=== PATIENT | male | born 1980 | race Caucasian/White ===

== ENCOUNTER 2016-08-11 16:48 | Emergency (ER) | payer SELFPAY ==
--- NOTE | 2016-08-11 17:21 | ER Document Report ---
ED Medical Screen (RME) - General Chief Complaint: Shoulder Pain Stated Complaint: SHOULDER PAIN Mode of Arrival: Ambulatory Information source: Patient Notes: 35 y/o M presents to ED c/o right shoulder/upper back pain. Pt reports first noted pain after twisting motion approximately 4 days ago. Denies fall or direct trauma. I have greeted and performed a rapid initial assessment of this patient. A comprehensive ED assessment and evaluation of the patient, analysis of test results and completion of the medical decision making process will be conducted by additional ED providers. TRAVEL OUTSIDE OF THE [place] IN LAST 30 DAYS: No - Related Data Allergies/Adverse Reactions: venom-honey bee [bee venom (honey bee)] Allergy (Verified 08/11/16 17:15) Past Medical History - Social History Chew tobacco use (# tins/day): No Frequency of alcohol use: None Drug Abuse: None Pulmonary Medical History: Reports: Hx Asthma, Hx Bronchitis Renal/ Medical History: Denies: Hx Peritoneal Dialysis - Immunizations Immunizations up to date: Yes Hx Diphtheria, Pertussis, Tetanus Vaccination: Yes Physical Exam - Vital signs Vitals: Temp Pulse Resp BP Pulse Ox 97.8 F 70 18 123/81 100 08/11/16 17:17 08/11/16 17:17 08/11/16 17:17 08/11/16 17:17 08/11/16 17:17 - General General appearance: Appears well, Alert In distress: None - Respiratory Respiratory status: No respiratory distress - Cardiovascular Pulses: Normal: Radial Normal capillary refill: Yes Course - Vital Signs Vital signs: Temp Pulse Resp BP Pulse Ox 97.8 F 70 18 123/81 100 08/11/16 17:17 08/11/16 17:17 08/11/16 17:17 08/11/16 17:17 08/11/16 17:17
[2016-08-11] MEDS ORDERED: HYDROCODONE/ACETAMINOPHEN 5-325 MG 6 TAB/DSPK PO PRN (20:46)
[2016-08-11] MEDS ORDERED: LIDOCAINE 5% (700 MG) TRANSDERMAL ADH..PATCH TP ONE (20:46)
[2016-08-11] MEDS ORDERED: NAPROXEN 250 MG TABLET PO ONE (20:46)
--- NOTE | 2016-08-11 20:47 | ER Document Report ---
ED General - General Chief Complaint: Shoulder Pain Stated Complaint: SHOULDER PAIN Mode of Arrival: Ambulatory Notes: Patient is a 35-year-old male who presents after he accidentally "popped" his shoulder while "wrestling" with his in bed 2 days ago. States that he reached over and felt his shoulder click and since that time has had a severe, constant, sharp pain in the area. He has been trying ibuprofen at home with minimal relief of his pain. Nothing worsens the pain other than trying to move the shoulder. Denies any history of similar symptoms in the past. He denies any associated weakness, numbness, headache or neck pain. No additional injury or complaint. He has not seen his primary care physician regarding today's concern. TRAVEL OUTSIDE OF THE [place] IN LAST 30 DAYS: No - Related Data Allergies/Adverse Reactions: venom-honey bee [bee venom (honey bee)] Allergy (Verified 08/11/16 17:15) Past Medical History - General Information source: Patient - Social History Smoking Status: Current Every Day Smoker Chew tobacco use (# tins/day): No Frequency of alcohol use: None Drug Abuse: None Lives with: Spouse/Significant other Family History: Reviewed & Not Pertinent, Other - Biological father from [place] and grandfather has had [place] as well Patient has suicidal ideation: No Patient has homicidal ideation: No Pulmonary Medical History: Reports: Hx Asthma, Hx Bronchitis Renal/ Medical History: Denies: Hx Peritoneal Dialysis Past Surgical History: Reports: Hx Appendectomy - Immunizations Immunizations up to date: Yes Hx Diphtheria, Pertussis, Tetanus Vaccination: Yes Review of Systems - Review of Systems Notes: Constitutional: Negative for fever. Cardiovascular: Negative for chest pain. Respiratory: Negative for shortness of breath. Gastrointestinal: Negative for vomiting Musculoskeletal: Positive for right shoulder pain Skin: Negative for rash. Neurological: Negative for weakness or numbness. 10 point ROS negative except as marked above and in HPI. Physical Exam - Vital signs Vitals: Temp Pulse Resp BP Pulse Ox 97.8 F 70 18 123/81 100 08/11/16 17:17 08/11/16 17:17 08/11/16 17:17 08/11/16 17:17 08/11/16 17:17 Interpretation: Normal Notes: PHYSICAL EXAMINATION: GENERAL: Well-appearing, well-nourished and in no acute distress. HEAD: Atraumatic, normocephalic. EYES: sclera anicteric, conjunctiva are normal. ENT: Moist mucous membranes. NECK: Normal range of motion LUNGS: Normal work of breathing HEART: 2+ radial pulses bilaterally EXTREMITIES: Patient has severe pain with abduction of the right shoulder past 90. No focal deformity. AIN, PIN, IO intact. RMU sensation intact. NEUROLOGICAL: No focal neurological deficits. Moves all extremities spontaneously and on command. PSYCH: Normal mood, normal affect. SKIN: Warm, Dry, normal turgor, no rashes or lesions noted. Course - Re-evaluation Re-evalutation: 08/11/16 20:47 No evidence of a septic joint, gout flare, dislocation, or fracture on exam and imaging. Vitals wnl. At this time, I do not see an indication for labs or further imaging. Will discharge with conservative measures, return precautions, and follow-up recommendations. - Vital Signs Vital signs: Temp Pulse Resp BP Pulse Ox 97.7 F 83 18 135/82 H 99 08/11/16 21:34 08/11/16 21:34 08/11/16 21:34 08/11/16 21:34 08/11/16 21:34 Discharge - Discharge Clinical Impression: Right shoulder pain Qualifiers: Chronicity: acute Qualified Code(s): M25.511 - Pain in right shoulder Condition: Good Disposition: HOME, SELF-CARE Additional Instructions: Your x-ray does not show any acute fracture today. You likely have a ligamentous strain. You should continue to take anti-inflammatories such as ibuprofen 600 mg every 6 hours. Continue to apply ice to the area is much your able. Please follow-up with your primary care physician if you do not have improving your symptoms in the next 1-2 weeks. Please return immediately if you develop weakness, numbness, spreading redness from the area, or any other symptoms that are concerning to you. Forms: Return to Work Referrals: RHONA ALEJANDRO MD [ACTIVE STAFF] - Follow up as needed
[2016-08-11 21:37] VITALS: BP 135/82
== END 2016-08-11 21:37 | disposition home or self-care (01) ==
LOC: ER 16:48
DX: M25.511 Pain in right shoulder (principal); X50.0XXA Overexertion from strenuous movement or load, initial encounter; Y93.72 Activity, wrestling; J45.909 Unspecified asthma, uncomplicated; F17.200 Nicotine dependence, unspecified, uncomplicated; Z91.030 Bee allergy status
CPT/HCPCS: 99283

== ENCOUNTER 2016-08-23 14:24 | Emergency (ER) | payer SELFPAY ==
--- NOTE | 2016-08-23 14:59 | ER Document Report ---
ED Medical Screen (RME) - General Stated Complaint: POSSIBLE ALLERGIC REACTION Time seen by provider: 14:56 Mode of Arrival: Wheelchair Information source: Patient Notes: 35-year-old male presents to ED for pain (burning sensation" in his right foot. He states he was stung by a wasp yesterday. 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 States she's taken some ibuprofen has not taken any Benadryl denies any trouble swallowing or breathing. I have greeted and performed a rapid initial assessment of this patient. A comprehensive ED assessment and evaluation of the patient, analysis of test results and completion of medical decision making process will be conducted by an additional ED providers. TRAVEL OUTSIDE OF THE [place] IN LAST 30 DAYS: No - Related Data Allergies/Adverse Reactions: venom-honey bee [bee venom (honey bee)] Allergy (Verified 08/23/16 14:53) Past Medical History Pulmonary Medical History: Reports: Hx Asthma, Hx Bronchitis Renal/ Medical History: Denies: Hx Peritoneal Dialysis Past Surgical History: Reports: Hx Appendectomy - Immunizations Immunizations up to date: Yes Hx Diphtheria, Pertussis, Tetanus Vaccination: Yes Physical Exam - Vital signs Vitals: Temp Pulse Resp BP Pulse Ox 97.8 F 72 16 120/80 99 08/23/16 14:40 08/23/16 14:40 08/23/16 14:40 08/23/16 14:40 08/23/16 14:40 Course - Vital Signs Vital signs: Temp Pulse Resp BP Pulse Ox 97.8 F 72 16 120/80 99 08/23/16 14:40 08/23/16 14:40 08/23/16 14:40 08/23/16 14:40 08/23/16 14:40
[2016-08-23] MEDS ORDERED: DIPHENHYDRAMINE HCL 50 MG CAPSULE PO ONE (15:01)
[2016-08-23] MEDS ORDERED: IBUPROFEN 800 MG TABLET PO ONE (15:01)
--- NOTE | 2016-08-23 17:09 | ER Document Report ---
ED Skin Rash/Insect Bite/Abscs - General Chief Complaint: Foot Pain Stated Complaint: POSSIBLE ALLERGIC REACTION Mode of Arrival: Wheelchair Notes: The patient is a 35-year-old male who presents with a itchy rash on the bottom of his right foot after he stepped on a bee one day ago. He noticed some redness. Has not taken anything to help. Denies difficulty breathing, wheezing , throat swelling, nausea, vomiting or any other rashes. TRAVEL OUTSIDE OF THE [place] IN LAST 30 DAYS: No - Related Data Allergies/Adverse Reactions: venom-honey bee [bee venom (honey bee)] Allergy (Verified 08/23/16 14:53) Past Medical History - General Information source: Patient - Social History Smoking Status: Current Every Day Smoker Chew tobacco use (# tins/day): Yes Family History: Reviewed & Not Pertinent, Other - Biological father from [place] and grandfather has had [place] as well Patient has suicidal ideation: No Patient has homicidal ideation: No Pulmonary Medical History: Reports: Hx Asthma, Hx Bronchitis Renal/ Medical History: Denies: Hx Peritoneal Dialysis Past Surgical History: Reports: Hx Appendectomy - Immunizations Immunizations up to date: Yes Hx Diphtheria, Pertussis, Tetanus Vaccination: Yes Review of Systems - Review of Systems Notes: REVIEW OF SYSTEMS: CONSTITUTIONAL: -fevers, -chills EENT: -eye pain, -difficulty swallowing, -nasal congestion CARDIOVASCULAR:-chest pain, -syncope. RESPIRATORY: -cough, -SOB GASTROINTESTINAL: -abdominal pain, -nausea, -vomiting, -diarrhea GENITOURINARY: -dysuria, -hematuria MUSCULOSKELETAL: -back pain, -neck pain SKIN: -right foot rash HEMATOLOGIC: -easy bruising or bleeding. LYMPHATIC: -swollen, enlarged glands. NEUROLOGICAL: -altered mental status or loss of consciousness, -headache, - neurologic symptoms PSYCHIATRIC: -anxiety, -depression. ALL OTHER SYSTEMS REVIEWED AND NEGATIVE. Physical Exam - Vital signs Vitals: Temp Pulse Resp BP Pulse Ox 97.8 F 72 16 120/80 99 08/23/16 14:40 08/23/16 14:40 08/23/16 14:40 08/23/16 14:40 08/23/16 14:40 - Notes Notes: PHYSICAL EXAMINATION: GENERAL: Well-appearing, well-nourished and in no acute distress. HEAD: Atraumatic, normocephalic. EYES: Pupils equal round and reactive to light, extraocular movements intact, sclera anicteric, conjunctiva are normal. ENT: nares patent, oropharynx clear without exudates. Moist mucous membranes. NECK: Normal range of motion, supple without lymphadenopathy LUNGS: Breath sounds clear to auscultation bilaterally and equal. No wheezes rales or rhonchi. HEART: Regular rate and rhythm without murmurs ABDOMEN: Soft, nontender, normoactive bowel sounds. No guarding, no rebound. No masses appreciated. EXTREMITIES: Small erythematous area on the surface of the right foot. Normal range of motion, no pitting or edema. No cyanosis. NEUROLOGICAL: Cranial nerves grossly intact. Normal speech, normal gait. Normal sensory, motor, and reflex exams. PSYCH: Normal mood, normal affect. Course - Re-evaluation Re-evalutation: No signs of anaphylaxis. Do not suspect allergic reaction. Small erythematous area most likely from local skin irritation. Stinger removed. - Vital Signs Vital signs: Temp Pulse Resp BP Pulse Ox 97.6 F 54 L 16 124/82 100 08/23/16 18:06 08/23/16 18:06 08/23/16 14:40 08/23/16 18:06 08/23/16 18:06 Procedures - Incision and Drainage Right Foot Type: Simple Incision Method: Incision made with needle Notes: Removal of stinger from bottom of right foot using forceps. Discharge - Discharge Clinical Impression: Bee sting Qualifiers: Encounter type: initial encounter Injury intent: undetermined intent Qualified Code(s): T63.444A - Toxic effect of venom of bees, undetermined, initial encounter Condition: Good Disposition: HOME, SELF-CARE Additional Instructions: ACUTE ALLERGIC REACTION: Your symptoms are due to an allergic reaction. Allergy can cause hives, swelling of the hands, feet, and face, hoarseness, and difficulty swallowing or breathing. It may be due to exposure to medication, animal dander, foods, infection, or insect bites. Medication is a common cause, even when prior use of this same medication caused no problems. Acute treatment may include adrenalin and antihistamines. Usually, the specific allergic agent can't be identified unless repeated episodes occur. Home treatment includes the following: (1) Stop any suspicious medications. This will be discussed with you. (2) Oral antihistamines for the next four to five days. Example, diphenhydramine (Benadryl) every four hours. (3) You may also use cimetidine (Tagamet), ranitidine (Zantac), or famotidine ( Pepcid) every four hours if diphenhydramine is not controlling itching and hives. (4) Avoid aspirin until the hives completely disappear. (5) Avoid hot baths or showers until the hives are completely gone. Call the doctor if faintness, difficulty swallowing, tightness in the chest , or wheezing occurs. ANTIHISTAMINES: An antihistamine has been given and/or prescribed to control your symptoms. Antihistamines are used for many reasons, including itching, watering eyes, runny nose, allergic swelling, hives, and insect stings. Antihistamines may cause drowsiness, especially with the first dose. Do not operate machinery or drive while under the effects of the medication. Other common side effects include dry mouth and eyes. In older persons, antihistamines can occasionally cause urinary retention, constipation, and trouble focusing the eyes. Do not combine the medication with alcohol, or with any other medication without talking to your doctor. USE OF DIPHENHYDRAMINE: The use of diphenhydramine (Benadryl) has been recommended to control allergic symptoms. The 25 mg strength is available over- the-counter, as well as the elixir. This antihistamine is used for many symptoms. It's useful for itching, watering eyes and nose, allergic swelling, hives, and insect stings. The medication can be repeated four times daily. Age Elixir (12.5 mg/tsp) 25 mg pill 2-3 yr 1/2 tsp 4-8 yr 1 tsp 9-14 yr 2 tsp one tab adult 1-2 tabs Antihistamines may cause drowsiness, especially with the first dose. Do not operate machinery or drive while under the effects of the medication. Do not combine the medication with alcohol, or with any other medication without talking to your doctor. FOLLOW-UP CARE: If you have been referred to a physician for follow-up care, call the physician s office for an appointment as you were instructed or within the next two days. If you experience worsening or a significant change in your symptoms, notify the physician immediately or return to the Emergency Department at any time for re-evaluation. Forms: Return to Work
[2016-08-23 18:15] VITALS: BP 124/82
== END 2016-08-23 18:06 | disposition home or self-care (01) ==
LOC: ER 14:24
DX: T63.441A Toxic effect of venom of bees, accidental (unintentional), initial encounter (principal); L25.8 Unspecified contact dermatitis due to other agents; S90.851A Superficial foreign body, right foot, initial encounter; F17.200 Nicotine dependence, unspecified, uncomplicated
CPT/HCPCS: 99283

== ENCOUNTER 2016-10-05 08:23 | Emergency (ER) | payer SELFPAY ==
--- NOTE | 2016-10-05 09:20 | ER Document Report ---
ED General - General Chief Complaint: Nose Pain Stated Complaint: NOSE INJURY Mode of Arrival: Ambulatory Information source: Patient Notes: 36-year-old male presents with complaints of nasal injury while tickling his . Patient notes he was head butted admits that it hurts to touch is able to breathe through his nostrils with no difficulty TRAVEL OUTSIDE OF THE [place] IN LAST 30 DAYS: No - HPI Onset: Yesterday Onset/Duration: Sudden Quality of pain: Achy Severity: Mild Pain Level: 1 Associated symptoms: Other Exacerbated by: Movement Relieved by: Denies Similar symptoms previously: No Recently seen / treated by doctor: No - Related Data Allergies/Adverse Reactions: venom-honey bee [bee venom (honey bee)] Allergy (Verified 10/05/16 08:25) Past Medical History - Social History Smoking Status: Current Every Day Smoker Cigarette use (# per day): Yes Chew tobacco use (# tins/day): No Smoking Education Provided: No Frequency of alcohol use: Rare Drug Abuse: None Family History: Reviewed & Not Pertinent, Other - Biological father from [place] and grandfather has had [place] as well Patient has suicidal ideation: No Patient has homicidal ideation: No Pulmonary Medical History: Reports: Hx Asthma, Hx Bronchitis Renal/ Medical History: Denies: Hx Peritoneal Dialysis Past Surgical History: Reports: Hx Appendectomy - Immunizations Immunizations up to date: Yes Hx Diphtheria, Pertussis, Tetanus Vaccination: Yes Review of Systems - Review of Systems Notes: REVIEW OF SYSTEMS: CONSTITUTIONAL : Denies fever, chills, or sweats. Denies recent illness. EENT: Denies eye, ear, throat, or mouth pain or symptoms. Denies nasal or sinus congestion or discharge. Denies throat, tongue, or mouth swelling or difficulty swallowing. Admits nasal pain CARDIOVASCULAR: Denies chest pain. Denies palpitations or racing or irregular heart beat. Denies ankle edema. RESPIRATORY: Denies cough, cold, or chest congestion. Denies shortness of breath, difficulty breathing, or wheezing. GASTROINTESTINAL: Denies abdominal pain or distention. Denies nausea, vomiting , or diarrhea. Denies blood in vomitus, stools, or per rectum. Denies black, tarry stools. Denies constipation. GENITOURINARY: Denies difficulty urinating, painful urination, burning, frequency, blood in urine, or discharge. MUSCULOSKELETAL: Denies back or neck pain or stiffness. Denies joint pain or swelling. SKIN: Denies rash, lesions or sores. HEMATOLOGIC : Denies easy bruising or bleeding. LYMPHATIC: Denies swollen, enlarged glands. NEUROLOGICAL: Denies confusion or altered mental status. Denies passing out or loss of consciousness. Denies dizziness or lightheadedness. Denies headache. Denies weakness or paralysis or loss of use of either side. Denies problems with gait or speech. Denies sensory loss, numbness, or tingling. Denies seizures. PSYCHIATRIC: Denies anxiety or stress. Denies depression, suicidal ideation, or homicidal ideation. ALL OTHER SYSTEMS REVIEWED AND NEGATIVE. Dictation was performed using [email or web address] voice recognition software PHYSICAL EXAMINATION: GENERAL: Well-appearing, well-nourished and in no acute distress. HEAD: Atraumatic, normocephalic. EYES: Pupils equal round extraocular movements intact, conjunctiva are normal. ENT: Nares patent tenderness palpation of the nasal bridge NECK: Normal range of motion LUNGS: No respiratory distress Musculoskeletal: Normal range of motion NEUROLOGICAL: Normal speech, normal gait. PSYCH: Normal mood, normal affect. SKIN: Warm, Dry, normal turgor, no rashes or lesions noted. Physical Exam - Vital signs Vitals: Temp Pulse Resp BP Pulse Ox 98.0 F 83 20 145/94 H 98 10/05/16 08:26 10/05/16 08:26 10/05/16 08:26 10/05/16 08:26 10/05/16 08:26 Course - Re-evaluation Re-evalutation: 10/05/16 09:20 X-ray pending otherwise patient stable - Vital Signs Vital signs: Temp Pulse Resp BP Pulse Ox 98.0 F 83 20 145/94 H 98 10/05/16 08:26 10/05/16 08:26 10/05/16 08:26 10/05/16 08:26 10/05/16 08:26 Discharge - Discharge Clinical Impression: Nasal injury Qualifiers: Encounter type: initial encounter Qualified Code(s): S09.92XA - Unspecified injury of nose, initial encounter Condition: Stable Disposition: HOME, SELF-CARE Instructions: Fracture of the Nose ([facility]) Additional Instructions: Follow up with your physician tomorrow for further care or return to the ED IMMEDIATELY if symptoms worsen or new concerns occur
[2016-10-05 10:33] VITALS: BP 142/90
== END 2016-10-05 10:34 | disposition home or self-care (01) ==
LOC: ER 08:23
DX: S09.92XA Unspecified injury of nose, initial encounter (principal); F17.210 Nicotine dependence, cigarettes, uncomplicated; X58.XXXA Exposure to other specified factors, initial encounter
CPT/HCPCS: 70160; 99283

== ENCOUNTER 2016-10-15 19:40 | Emergency (ER) | payer SELFPAY ==
--- NOTE | 2016-10-15 21:39 | ER Document Report ---
ED General - General Chief Complaint: Flu Symptoms Stated Complaint: VOMITING Mode of Arrival: Ambulatory Information source: Patient Notes: Patient is a 36 year old male who presents with 2 day history of body aches, subjective fever, dry non-productive cough, nausea and vomiting. Last episode of vomiting was yesterday. States today he started having diarrhea ( approximately 10 episodes) but denies blood in stool. He has been taking OTC robitussin/cough and cold medications. Denies any previous medical history or regular medications. Current smoker. Works in [employer] with approx 200 coworkers. Denies any sore throat, chest pain, SOB, abdominal pain or dysuria. TRAVEL OUTSIDE OF THE [place] IN LAST 30 DAYS: No - Related Data Allergies/Adverse Reactions: venom-honey bee [bee venom (honey bee)] Allergy (Verified 10/05/16 08:25) Past Medical History - Social History Smoking Status: Current Every Day Smoker Family History: Reviewed & Not Pertinent, Other - Biological father from [place] and grandfather has had [place] as well Patient has suicidal ideation: No Patient has homicidal ideation: No Pulmonary Medical History: Reports: Hx Asthma, Hx Bronchitis Renal/ Medical History: Denies: Hx Peritoneal Dialysis Past Surgical History: Reports: Hx Appendectomy - Immunizations Immunizations up to date: Yes Hx Diphtheria, Pertussis, Tetanus Vaccination: Yes Review of Systems - Review of Systems Constitutional: See HPI EENT: See HPI Cardiovascular: No symptoms reported Respiratory: See HPI Gastrointestinal: See HPI Genitourinary: No symptoms reported Male Genitourinary: No symptoms reported Musculoskeletal: No symptoms reported Skin: No symptoms reported Hematologic/Lymphatic: No symptoms reported Neurological/Psychological: No symptoms reported Physical Exam - Vital signs Vitals: Temp Pulse Resp BP Pulse Ox 98.2 F 59 L 20 133/82 H 99 10/15/16 19:49 10/15/16 19:49 10/15/16 19:49 10/15/16 19:49 10/15/16 19:49 Interpretation: Hypertensive - Notes Notes: PHYSICAL EXAM: CONSTITUTIONAL: Alert and oriented, ill-appearing and in no acute distress. Non- toxic in appearance. HENT: Normocephalic, atraumatic. Nares clear without erythema, septal hematoma or deviation, airway patent. Oropharynx clear without erythema, tonsilar exudate or malocclusion. Trachea midline. Uvula midline. Moist mucous membranes. EYES: Pupils equal round and reactive to light, EOM intact. Sclera anicteric, conjunctiva are normal. No entrapment. NECK: supple without lymphadenopathy. ROM intact. HEART: Regular rate and rhythm without murmurs. LUNGS: CTAB and equal. No wheezes, rales or rhonchi. GI: Normactive bowel sounds. Nontender, non-distended. No organomegaly. no CVAT. BACK: nontender, no paraspinous spasm, 5+/5 strengths, DTRs 2+, SLR -. EXTREMITIES: Normal range of motion, no pitting edema. No cyanosis. Cap Refill < 3 seconds. SKIN: Warm and dry. Normal turgor. No rashes or lesions noted. Course - Re-evaluation Re-evalutation: 10/15/16 21:35 Patient seen and examined, VSS, no respiratory distress. Lungs CTAB. Abdominal exam unremarkable. Influenza negative. Exam consistent with flu-like illness. At this time, low suspicion for meningitis, pneumonia, pneumothorax, appendicitis, cholecysitis, peritonitis, epididymitis or other intra-abdominal infections. Will treat with supportive care measures. At this time, will discharge with return precautions and follow-up recommendations. Verbal discharge instructions given at the bedside and opportunity for questions given. Medication warnings reviewed. Patient is in agreement with this plan and has verbalized understanding of return precautions and the need for primary care follow-up in the next 24-72 hours. - Vital Signs Vital signs: Temp Pulse Resp BP Pulse Ox 98.2 F 59 L 20 133/82 H 99 10/15/16 19:49 10/15/16 19:49 10/15/16 19:49 10/15/16 19:49 10/15/16 19:49 Discharge - Discharge Clinical Impression: Flu-like symptoms, Acute viral syndrome Condition: Stable Disposition: HOME, SELF-CARE Additional Instructions: VOMITING: Vomiting (or nausea without vomiting) can be caused by many other different problems. It can mean that something's wrong with the stomach, such as ulcers or inflammation or the intestinal tract, such as appendicitis. But it can also be a symptom of a problem that has nothing to do with the stomach or intestines. Vomiting is common with severe headaches, earaches, tonsillitis, and kidney infections, etc. We see it with pneumonia or heart attacks. Drugs can cause nausea and vomiting. Many abdominal problems cause vomiting; for example, gallstones, kidney stones, pancreatitis, and intestinal obstruction ( blocked bowels). In most cases, curing the vomiting depends on fixing the problem that caused it. For temporary relief, we may use an anti-nausea medicine. For home use, we can prescribe suppositories, chewable pills, pills that dissolve in the mouth, or liquid anti-nausea drugs. If the vomiting seems to be caused by a problem in the stomach, acid-suppressing drugs may be prescribed as well. It's important to avoid dehydration. Sip small amounts of clear liquids ( soft drinks, tea, broth, etc) . Try to take fluids frequently even if you are vomiting to prevent dehydration. Take increasing amounts of fluid and when liquids are being consumed successfully, advance to small amounts of bland food (toast, soups, mashed potatoes, etc.) until you are able to resume a regular diet. Avoid aspirin, tobacco, and alcohol. If the vomiting worsens, if the problem that's making you vomit worsens, or if there's evidence of bleeding in the stomach (such as black, tarry stool, or bloody or black vomit), you should return immediately. Also, return if abdominal pain worsens or becomes localized to one area or you develop high fever. Call your doctor if you aren't improved in 24 hours. DIARRHEA, NON-SPECIFIC: Diarrhea means frequent, watery stools. There are many causes. Any problem that keeps the intestinal tract from absorbing water from the stool can lead to diarrhea. A sudden new diarrhea problem is usually caused by a virus, food sensitivity, toxic bacteria, or drugs. In this case, we expect the problem to go away soon. Testing is done only if you seem seriously ill from the diarrhea. If you have chronic diarrhea, or diarrhea that keeps coming back, we need to find out why. Chronic diarrhea can be due to inflammation of the bowels such as Crohn's disease or ulcerative colitis, food sensitivity such as intolerance to lactose or wheat protein, irritable bowel syndrome, and other problems. If your diarrhea is a significant problem but it's not clear why you have it, we' ll refer you to a specialist for further testing. During an episode of diarrhea, drink small amounts (two to six ounces) of clear liquids (soft drinks, sport drinks, herb teas, broth, etc). Take fluids frequently to prevent dehydration. It's usually not a problem to take mild anti- diarrhea medication such as Kaopectate or Pepto-Bismol. As the diarrhea eases, advance to small amounts of bland food (mashed potato, toast) for 24 hours. Call the physician if blood appears in your vomit or stool, if vomiting lasts longer than 24 hours, if the abdominal pain worsens or becomes localized to one area, if you develop high fever, or if you become lightheaded and weak. VIRAL SYNDROME: The physician has diagnosed a viral infection. Viruses not only cause "colds," but can cause many different symptoms including generalized aching, fever, headache, cough, diarrhea, nausea, vomiting, and fatigue. The treatment, for the most part, is simply relief of symptoms. This means that antibiotics are usually not given. Rest, fluids, pain medications and, occasionally, medication for the specific symptoms that are most bothersome will be prescribed. Use good handwashing to avoid passing the virus to others. Shared toys should be cleaned with disinfectant. Clean the toilets, sinks, and counter surfaces in bathrooms. Launder clothing in hot water. Contact the physician if you develop any new or unusual symptoms such as severe headache, stiff neck, high fever, chest pain, productive cough, or shortness of breath. You should be rechecked if you don't see marked improvement within seven to 10 days. ANTINAUSEA MEDICATION: You have been given a medication to suppress nausea and vomiting. This type of medication can be given as a shot, pill, or suppository. It will usually last for many hours. Pills and shots usually last six to eight hours. For the typical illness, only one or two doses of the medication may be necessary. Mild lightheadedness may occur. This type of medicine can cause drowsiness. Do not drive or operate dangerous machinery while under its influence. Do not mix with alcohol. See your doctor at once if you have muscle spasms or tightness, or uncontrollable motions (particularly of the neck, mouth, or jaw). Persistent vomiting or severe lightheadedness should also be evaluated by the physician. PRESCRIBED ANTIDIARRHEAL MEDICATION: Your doctor has prescribed antidiarrhea medication for you. While the usual treatment for diarrhea is a clear liquid diet to rest the bowels, an antidiarrheal medicine may allow you to be more active and comfortable while you recover. This medication can make you drowsy. Do not drive or operate machinery while under its influence. Do not combine with alcohol. Prescription antidiarrhea medicine can cause dry mouth. Occasionally, it can make you unable to pass your urine. Do not exceed the prescribed dosage. Severe abdominal pains, lightheadedness, bloody stool, or fever indicate that your disease is worsening. If these occur, stop the medication and see your doctor at once. FOLLOW-UP CARE: If you have been referred to a physician for follow-up care, call the physician s office for an appointment as you were instructed or within the next two days. If you experience worsening or a significant change in your symptoms, notify the physician immediately or return to the Emergency Department at any time for re-evaluation. Prescriptions: Loperamide HCl [Imodium 2 mg Capsule] 2 mg PO Q6HP PRN #21 cap PRN Reason: Prednisone [Deltasone 20 mg Tablet] 3 tab PO DAILY 5 Days Promethazine HCl [Phenergan 25 mg Tablet] 1 - 2 tab PO Q6H PRN #15 tablet PRN Reason: Forms: Elevated Blood Pressure, Return to Work
[2016-10-15 21:56] VITALS: BP 135/85
== END 2016-10-15 21:55 | disposition home or self-care (01) ==
LOC: ER 19:40
DX: B34.9 Viral infection, unspecified (principal); R52 Pain, unspecified; R50.9 Fever, unspecified; R05 Cough; R11.2 Nausea with vomiting, unspecified; F17.200 Nicotine dependence, unspecified, uncomplicated
CPT/HCPCS: 87804; 99283

== ENCOUNTER 2016-10-18 12:38 | Emergency (ER) | payer SELFPAY ==
--- NOTE | 2016-10-18 12:56 | ER Document Report ---
ED Medical Screen (RME) - General Chief Complaint: Diarrhea Stated Complaint: FEVER/BODY ACHES Time seen by provider: 12:55 Mode of Arrival: Ambulatory Information source: Patient Notes: 36 yo male with head congestion, cough, diarrhea. seen monday in er dx virus. works in [employer] center. TRAVEL OUTSIDE OF THE [place] IN LAST 30 DAYS: No - Related Data Allergies/Adverse Reactions: venom-honey bee [bee venom (honey bee)] Allergy (Verified 10/18/16 12:47) Past Medical History Pulmonary Medical History: Reports: Hx Asthma, Hx Bronchitis Renal/ Medical History: Denies: Hx Peritoneal Dialysis Past Surgical History: Reports: Hx Appendectomy - Immunizations Immunizations up to date: Yes Hx Diphtheria, Pertussis, Tetanus Vaccination: Yes
[2016-10-18] MEDS ORDERED: ALBUTEROL SULFATE 0.083% NEB 2.5 MG/3 ML AMPUL NEB ONE (13:26)
--- NOTE | 2016-10-18 13:26 | ER Document Report ---
HPI - HPI Patient complains to provider of: cough body aches and diarrhea Onset: Other Onset/Duration: Gradual - Several days Quality of pain: Throbbing Pain Level: 4 Context: 36-year-old male complaining of cough, bodyaches, pulled a muscle in his upper back from coughing, diarrhea, head congestion for several days. Associated Symptoms: None Exacerbated by: Movement Relieved by: Denies Similar symptoms previously: No Recently seen / treated by doctor: No - ROS ROS below otherwise negative: Yes Systems Reviewed and Negative: Yes All other systems reviewed and negative - DERM Skin Color: Normal Past Medical History - General Information source: Patient - Social History Smoking Status: Unknown if Ever Smoked Frequency of alcohol use: None Drug Abuse: None Family History: Reviewed & Not Pertinent, Other - Biological father from [place] and grandfather has had [place] as well Patient has suicidal ideation: No Patient has homicidal ideation: No Pulmonary Medical History: Reports: Hx Asthma, Hx Bronchitis Renal/ Medical History: Denies: Hx Peritoneal Dialysis Past Surgical History: Reports: Hx Appendectomy - Immunizations Immunizations up to date: Yes Hx Diphtheria, Pertussis, Tetanus Vaccination: Yes Vertical Provider Document - CONSTITUTIONAL Agree With Documented VS: Yes - INFECTION CONTROL TRAVEL OUTSIDE OF THE [place] IN LAST 30 DAYS: No - HEENT HEENT: Normocephalic, Pharyngeal Erythema. negative: Conjuctival Injection, Tympanic Membrane Red, Tympanic Membrane Bulging - NECK Neck: Supple, Lymphadenopathy-Left, Lymphadenopathy-Right - RESPIRATORY Respiratory: Breath Sounds Normal, No Respiratory Distress - CARDIOVASCULAR Cardiovascular: Regular Rate, Regular Rhythm - GI/ABDOMEN Gastrointestinal: Abdomen Soft, Abdomen Non-Tender, No Organomegaly - BACK Notes: tender right trapezius muscle - MUSCULOSKELETAL/EXTREMETIES Musculoskeletal/Extremeties: MAEW, FROM - NEURO Level of Consciousness: Awake, Alert, Appropriate Motor/Sensory: No Motor Deficit, No Sensory Deficit - DERM Integumentary: Warm, Dry, No Rash Discharge - Discharge Clinical Impression: upper respiratory infection, diarrhea Strain of right trapezius muscle Qualifiers: Encounter type: initial encounter Qualified Code(s): S46.811A - Strain of other muscles, fascia and tendons at shoulder and upper arm level, right arm, initial encounter Condition: Good Disposition: HOME, SELF-CARE Instructions: Muscle Strain ([facility]), Anti-Inflammatory Medication ([facility]), Diarrhea , Nonspecific ([facility]), Upper Respiratory Illness ([facility]), Inhaled Bronchodilators ( [facility]), Stop Smoking ([facility]) Additional Instructions: warm compress to trapezius muscle stop smoking reTurn to the emergency room any worse Continue to hydrate advance your diet as tolerated Please complete the patient satisfaction survey if you get one, and return it.. If you do not receive a survey, then you can go to the [facility] website, [email or web address] and place your comments about your very good care. Thank you very much. It was a pleasure being your medical provider today. Prescriptions: Albuterol Sulfate [Proair HFA Inhalation Aerosol 8.5 gm MDI] 2 puff IH Q3HP PRN #1 [email or web address] PRN Reason: Ibuprofen [Motrin 800 mg Tablet] 800 mg PO Q8HP PRN #30 tablet PRN Reason: Forms: Return to Work
[2016-10-18] MEDS ORDERED: IBUPROFEN 800 MG TABLET PO ONE (13:56)
[2016-10-18] MEDS ORDERED: IBUPROFEN 800 MG TABLET ONE (14:12)
[2016-10-18 14:29] VITALS: BP 120/77
== END 2016-10-18 14:28 | disposition home or self-care (01) ==
LOC: ER 12:38
DX: J06.9 Acute upper respiratory infection, unspecified (principal); R19.7 Diarrhea, unspecified; R05 Cough; R52 Pain, unspecified; R09.81 Nasal congestion
CPT/HCPCS: 94640; 99283

== ENCOUNTER 2017-10-06 20:46 | Emergency (ER) | payer SELFPAY ==
[2017-10-06 21:11] VITALS: BP 136/91
[2017-10-06 21:18] LABS: ABSOLUTE BASOPHILS # (AUTO) 0.1 10^3/uL (0.0-0.2); ABSOLUTE LYMPHOCYTES (AUTO) 1.5 10^3/uL (0.5-4.7); ABSOLUTE NEUT (AUTO) 8.5 10^3/uL (1.7-8.2); BASOPHILS % (AUTO) 0.5 % (0-2); EOSINOPHILS % (AUTO) 0.3 % (0-6); HEMATOCRIT 43.7 % (37.9-51.0); HEMOGLOBIN 14.9 g/dL (13.5-17.0); LYMPHOCYTES % (AUTO) 13.3 % (13-45); MEAN CORPUSCULAR HEMOGLOBIN 30.5 pg (27.0-33.4); MEAN CORPUSCULAR HGB CONC 34.1 g/dL (32.0-36.0); MEAN CORPUSCULAR VOLUME 89 fl (80-97); MONOCYTES % (AUTO) 8.6 % (3-13); PLATELET COUNT 191 10^3/uL (150-450); RED BLOOD COUNT 4.89 10^6/uL (4.35-5.55); RED CELL DISTRIBUTION WIDTH 14.5 % (11.5-14.0); SEGMENTED NEUTROPHILS % (AUTO) 77.3 % (42-78); TOTAL CELLS COUNTED % (AUTO) 100 %
[2017-10-06 21:35] LABS: ALANINE AMINOTRANSFERASE 34 U/L (21-72); ALBUMIN 4.9 g/dL (3.5-5.0); ALKALINE PHOSPHATASE 64 U/L (38-126); ANION GAP 16 (5-19); ASPARTATE AMINO TRANSFERASE 33 U/L (17-59); BILIRUBIN,DIRECT 0.3 mg/dL (0.0-0.4); BILIRUBIN,TOTAL 0.8 mg/dL (0.2-1.3); BLOOD UREA NITROGEN 17 mg/dL (7-20); CARBON DIOXIDE 19 mmol/L (22-30); CHLORIDE 107 mmol/L (98-107); GLUCOSE 131 mg/dL (75-110); LIPASE 136.2 U/L (23-300); SODIUM 141.9 mmol/L (137-145)
[2017-10-06 21:43] LABS: CALCIUM OXALATE CRYSTALS,URINE TOO NUMEROUS TO CNT /HPF
[2017-10-06 21:49] LABS: APPEARANCE,URINE SLIGHTLY-CLOUDY; BILIRUBIN,URINE MODERATE (NEGATIVE); COLOR,URINE YELLOW; GLUCOSE, URINE NEGATIVE (NEGATIVE); KETONES,URINE 25 mg/dL (NEGATIVE)
[2017-10-06 21:50] LABS: LEUKOCYTE ESTERASE,URINE TRACE (NEGATIVE); NITRITE,URINE NEGATIVE (NEGATIVE); PROTEIN,URINE 30 mg/dL (NEGATIVE); URINE SPECIFIC GRAVITY 1.033
[2017-10-06] MEDS ORDERED: CEFTRIAXONE 1 GM/D5W RTU 1 GM/50 ML RTUPB IV ONE (22:07)
[2017-10-06] MEDS ORDERED: NORMAL SALINE 1000 ML 1,000 ML IV ONE (22:09)
[2017-10-06] MEDS ORDERED: KETOROLAC TROMETHAMINE INJ/PF 30 MG/1 ML SDV IV ONE (22:09)
--- NOTE | 2017-10-06 22:09 | ER Document Report ---
ED General - General Chief Complaint: Flank Pain Stated Complaint: FLANK PAIN Time Seen by Provider: 10/06/17 21:22 Notes: Patient is a 37-year-old male presents emergency department the chief complaint of right flank pain that started about 5:30 PM. Patient states it is a sharp stabbing pain in his back radiating into his right groin. Patient states that it feels consistent with his previous history of kidney stones. He admits to nausea and vomiting related to the pain but denies any fevers or chills. He admits to difficulty with urination denies any hematuria. Otherwise healthy male. TRAVEL OUTSIDE OF THE [place] IN LAST 30 DAYS: No - Related Data Allergies/Adverse Reactions: venom-honey bee [bee venom (honey bee)] Allergy (Verified 10/18/16 12:47) Past Medical History - Social History Smoking Status: Current Every Day Smoker Family History: Reviewed & Not Pertinent, Other - Biological father from [place] and grandfather has had [place] as well Patient has suicidal ideation: No Patient has homicidal ideation: No Pulmonary Medical History: Reports: Hx Asthma, Hx Bronchitis Renal/ Medical History: Denies: Hx Peritoneal Dialysis Past Surgical History: Reports: Hx Appendectomy - Immunizations Immunizations up to date: Yes Hx Diphtheria, Pertussis, Tetanus Vaccination: Yes Review of Systems - Review of Systems Constitutional: No symptoms reported. denies: Chills, Fever Cardiovascular: No symptoms reported Respiratory: No symptoms reported Gastrointestinal: See HPI, Nausea, Vomiting Genitourinary: See HPI Male Genitourinary: See HPI Musculoskeletal: No symptoms reported -: Yes All other systems reviewed and negative Physical Exam - Vital signs Vitals: Temp Pulse Resp BP Pulse Ox 97.3 F 60 20 136/91 H 98 10/06/17 21:03 10/06/17 21:03 10/06/17 21:03 10/06/17 21:03 10/06/17 21:03 - Notes Notes: PHYSICAL EXAM GENERAL: Alert, interacts well. HEAD: Normocephalic, atraumatic. LUNGS: Clear to auscultation bilaterally, no wheezes, rales, or rhonchi. No respiratory distress. HEART: Regular rate and rhythm. No murmurs, gallops, or rubs. ABDOMEN: Soft, nondistended, mild suprapubic tenderness. No guarding, rebound, or rigidity.. Bowel sounds present in all 4 quadrants. Back: Right CVA tenderness. No musculoskeletal tenderness or spinous process deformities, tenderness. EXTREMITIES: Moves all 4 extremities spontaneously. No edema, radial and dorsalis pedis pulses 2/4 bilaterally. No cyanosis. NEUROLOGICAL: Alert and oriented x4. Normal speech. PSYCH: Normal affect, normal mood. SKIN: Warm, dry, normal turgor. No rashes or lesions noted. Course - Re-evaluation Re-evalutation: 10/06/17 23:15 Patient is a 37-year-old male is hemodynamically stable, no acute distress and afebrile. No evidence of tachycardia, hypotension. CT shows evidence of a stone within the bladder as well as right hydronephrosis but no residual stones. Urinalysis with evidence of mild bacteria with positive leukoesterase, white blood cells and bacteria. Patient's white blood cell count of 11. No evidence of acute renal injury/acute renal failure. Patient improved after IV fluids and pain medication. Reviewed case with urologist director of marketing and promotions Dr. Corral who is requested urine culture to be sent and patient can be discharged home on Keflex, with a urine strainer and to follow up with in their office in 1-2 weeks. Patient is agreeable and stable for discharge home. - Vital Signs Vital signs: Temp Pulse Resp BP Pulse Ox 97.3 F 60 20 136/91 H 98 10/06/17 21:03 10/06/17 21:03 10/06/17 21:03 10/06/17 21:03 10/06/17 21:03 - Laboratory Result Diagrams: 10/06/17 21:00 10/06/17 21:00 Laboratory results interpreted by me: 10/06/17 10/06/17 10/06/17 21:00 21:00 21:00 WBC 11.0 H RDW 14.5 H Absolute Neutrophils 8.5 H Carbon Dioxide 19 L Glucose 131 H Urine Protein 30 H Urine Ketones 25 H Urine Blood MODERATE H Urine Bilirubin MODERATE H Urine Urobilinogen 8.0 H Ur Leukocyte Esterase TRACE H - Diagnostic Test Radiology reviewed: Image reviewed, Reports reviewed Discharge - Discharge Clinical Impression: Bladder stone Condition: Good Disposition: HOME, SELF-CARE Additional Instructions: -Please be sure to utilize the strainer to look for the stone when he passed it. Please take your medications as directed. Please be sure to drink plenty of clear fluids such as water, Gatorade or Pedialyte. -Please make an appointment to follow-up with onset of urology in 1-2 weeks. If you do pass the stone prior to your appointment please call them so that they can update your appointment needs. [facility] Address: [address] [place] [address] [place], [place] [address] KIDNEY STONE: You are passing or have passed a kidney stone. These stones are usually due to increased calcium or uric acid concentrations in your urine. Stones within the kidney itself are not painful. The pain occurs as the stone leaves the kidney to pass down the long tube, called the ureter, leading to the bladder. If the stone is small, it will usually pass by itself. Most patients can pass the stone at home. You will usually receive medications for pain, nausea or vomiting, and sometimes a medication to assist in passing the kidney stone. However, if the pain is very severe or if vomiting prevents you from taking oral pain medications, you may need to return for further treatment. Drink three or four quarts of fluids per day. You will be given pain medication (if needed) and urine strainers. Strain all your urine to see if the stone passes. If your doctor has asked you to bring the stone in for analysis, return with the stone once it has passed. Return if pain or vomiting become severe, if you develop a high fever, if you are unable to pass your urine, or if other unusual symptoms occur. TORADOL INJECTION: You have been given an injection of ketorolac tromethamine (Toradol). This is an excellent, safe drug for pain control. It also has potent antiinflammatory action. You should have significant pain relief within about one hour. Toradol is not addicting and is non-sedating. It does not interfere with driving or work. Call or return if you develop itching, hives, shortness of breath, or rash. PAIN MEDICATION INJECTION: You have received an injection of a pain medication. You should experience significant pain relief within 45 minutes. This drug is a narcotic - - it will impair your judgement, slow your reaction time and make you sleepy ( as well as relieve your pain). Narcotics also can cause nausea. You should not drive, work with machinery, or perform any task requiring mental alertness until all effects of the medication are gone -- six to eight hours. Do not take any alcohol, or sedatives, and do not take any other medication without checking with your physician. ANTINAUSEA MEDICATION: You have been given a medication to suppress nausea and vomiting. This type of medication can be given as a shot, pill, or suppository. It will usually last for many hours. Pills and shots usually last six to eight hours, suppositories last about 12 hours. For the typical illness, only one or two doses of the medication may be necessary. Mild lightheadedness may occur. This type of medicine can cause drowsiness. Do not drive or operate dangerous machinery while under its influence. Do not mix with alcohol. See your doctor at once if you have muscle spasms or tightness, or uncontrollable motions (particularly of the neck, mouth, or jaw). Persistent vomiting or severe lightheadedness should also be evaluated by the physician. ORAL NARCOTIC MEDICATION: You have been given a prescription for pain control. This medication is a narcotic. It's best taken with food, as nausea can result if taken on an empty stomach. Don't operate machinery or drive within six hours of taking this medication. Do not combine this medicine with alcohol, or with any medication which can cause sedation (such as cold tablets or sleeping pills) unless you get permission from the physician. Narcotics tend to cause constipation. If possible, drink plenty of fluids and eat a diet high in fiber and fruits. Please be aware that prescription narcotics also have the potential for abuse. People become addicted to these medications because of the general sense of wellbeing that they induce. This feeling along with a significant reduction in tension, anxiety, and aggression provides a stimulating seductive quality to these drugs. Once your pain is under control, we encourage you to discard your unused narcotics. FLOMAX (tamsulosin): Flomax is a medicine that shrinks the prostate gland. It helps relieve symptoms of benign prostatic hypertrophy, such as frequent urination, weak stream, and inadequate emptying. It has been shown to dilate the ureter (tube leading from the kidney to the bladder) and help in passing kidney stones Flomax usually causes no side effects. You may notice slight tiredness and dizziness for a few days. Some patients develop nasal congestion. Rarely, impotence can occur. If the symptoms are bothersome and don't improve with continued use, call your doctor. Contact your doctor or return if you have fainting spells, severe weakness or dizziness, shortness of breath, or rash. FOLLOW-UP CARE: If you have been referred to a physician for follow-up care, call the physician s office for an appointment as you were instructed or within the next two days. If you experience worsening or a significant change in your symptoms, notify the physician immediately or return to the Emergency Department at any time for re-evaluation. Prescriptions: Ondansetron [Zofran Odt 4 mg Tablet] 1 - 2 tab PO Q4HP PRN #10 tab.rapdis PRN Reason: Hydrocodone/Acetaminophen [[place] 5-325 mg Tablet] 1 tab PO Q6HP PRN #10 tablet PRN Reason: Cephalexin Monohydrate [Keflex 500 mg Capsule] 500 mg PO BID 5 Days capsule Tamsulosin HCl [Flomax 0.4 mg Cap.sr] 0.4 mg PO DAILY #7 cap.sr.24h Referrals: CHATO CORRAL II, MD [[facility]] - Follow up in 1 week
[2017-10-06] MEDS ORDERED: CEFTRIAXONE INJ 1000 MG VIAL ONE (22:21)
--- NOTE | 2017-10-06 22:45 | RADIOLOGY REPORT (SQ) ---
EXAM DESCRIPTION: CT LTD RENAL STONE PROTOCOL ON COMPLETED DATE/TIME: 10/06/2017 10:28 pm REASON FOR STUDY: right flank pain COMPARISON: 06/20/2016 TECHNIQUE: CT scan of the abdomen and pelvis performed without intravenous or oral contrast. Images reviewed with lung, soft tissue, and bone windows. Reconstructed coronal and sagittal MPR images revi ewed. All images stored on PACS. All CT scanners at this facility use dose modulation, iterative reconstruction, and/or weight based d osing when appropriate to reduce radiation dose to as low as reasonably achievable (ALARA). [facility]: Dose Right [facility]: CareDose [facility]: Dose Right [facility]: Teradose 4D [facility]: Smart [employer] ([place]) RADIATION DOSE: CT Rad equipment meets quality standard of care and radiation dose reduction techniq ues were employed. CTDIvol: 7.3 mGy. DLP: 396 mGy-cm.mGy. LIMITATIONS: None. FINDINGS: LOWER CHEST: No significant findings. No nodules or infiltrates. NON-CONTRASTED LIVER, SPLEEN, ADRENALS: Evaluation limited by lack of IV contrast. No identified sign ificant masses. PANCREAS: No masses. No peripancreatic inflammatory changes. GALLBLADDER: No identified stones by CT criteria. No inflammatory changes to suggest cholecystitis. RIGHT KIDNEY AND URETER: No suspicious masses. Assessment limited by lack of IV contrast. No signif icant calcifications. Mild right hydronephrosis. LEFT KIDNEY AND URETER: No suspicious masses. Assessment limited by lack of IV contrast. No signifi cant calcifications. No hydronephrosis or hydroureter. AORTA AND RETROPERITONEUM: No aneurysm. No retroperitoneal masses or adenopathy. BOWEL AND PERITONEAL CAVITY: No obvious masses or inflammatory changes. No free fluid. APPENDIX: Surgically absent. PELVIS, BLADDER, AND ABDOMINAL WALL:Tiny fat containing periumbilical hernia. No abnormal masses. No free fluid. Tiny calcification seen within the right aspect of the bladder near the orifice of the ureter seen on series 601, image 38 compatible with spot passed urinary tract calculus. BONES: No significant findings. OTHER: No other significant finding. IMPRESSION: MILD RIGHT HYDRONEPHROSIS WITH PERINEPHRIC STRANDING WHICH APPEARS TO BE SECONDARY TO PA SSED CALCULUS NOW LOCATED WITHIN THE BLADDER. COMMENT: Quality ID # [id number]: Final reports with documentation of one or more dose reduction techniques (e.g., Automated exposure control, adjustment of the mA and/or kV according to patient size, use of iterative reconstruction technique) TECHNICAL DOCUMENTATION: JOB ID: [id number] [employer]- All Rights Reserved Reading location - IP/workstation name: [email or web address]
[2017-10-06] MEDS ORDERED: HYDROCODONE/ACETAMINOPHEN 5-325 MG (6 TAB/ER DISP) PO PRN (23:21)
[2017-10-06] MEDS ORDERED: MORPHINE SULFATE 10 MG/ML INJ IV ONE (23:21)
[2017-10-06] MEDS ORDERED: ONDANSETRON ODT 4 MG TAB (6 TAB/ER DISP) PO PRN (23:21)
== END 2017-10-06 23:40 | disposition home or self-care (01) ==
LOC: ER 20:46
DX: N21.0 Calculus in bladder (principal); R10.30 Lower abdominal pain, unspecified; R11.2 Nausea with vomiting, unspecified; R33.9 Retention of urine, unspecified; F17.200 Nicotine dependence, unspecified, uncomplicated
CPT/HCPCS: 99284; 96375; 96365; 36415; 87086; 83690; 85025; 80053; 81001; 76380; J1885; J2270; J0696; J7030

== ENCOUNTER 2017-10-13 11:37 | Emergency (ER) | payer SELFPAY ==
[2017-10-13] MEDS ORDERED: OXYCODONE-ACETAMINOPHEN 5-325 MG TABLET PO ONE (12:07)
[2017-10-13] MEDS ORDERED: ONDANSETRON 4 MG TAB.RAPDIS PO ONE (12:08)
--- NOTE | 2017-10-13 12:10 | ER Document Report ---
ED Medical Screen (RME) - General Chief Complaint: Flank Pain Stated Complaint: RIGHT FLANK PAIN Time Seen by Provider: 10/13/17 12:02 Notes: RME DISCLOSURE I have seen this patient as part of a Rapid Medical Evaluation and, if applicable, placed any initially appropriate orders. The patient will be seen and fully evaluated, including a full history and physical exam, by a provider ( in Main ED or Fast Track) when a room becomes available. 37-year-old male PMH kidney stones here with complaints of right flank pain that started 1 week ago. He was seen in the emergency department and CT scan showed findings suspicious for passed stone as well as mild right hydronephrosis but no stones in the renal pelvis. Still has gallbladder. EXAM Moderate right upper quadrant tenderness palpation TRAVEL OUTSIDE OF THE [place] IN LAST 30 DAYS: No - Related Data Allergies/Adverse Reactions: venom-honey bee [bee venom (honey bee)] Allergy (Verified 10/18/16 12:47) Past Medical History - Social History Chew tobacco use (# tins/day): No Frequency of alcohol use: Occasional Drug Abuse: Marijuana Pulmonary Medical History: Reports: Hx Asthma, Hx Bronchitis Renal/ Medical History: Denies: Hx Peritoneal Dialysis Past Surgical History: Reports: Hx Appendectomy - Immunizations Immunizations up to date: Yes Hx Diphtheria, Pertussis, Tetanus Vaccination: Yes Physical Exam - Vital signs Vitals: Temp Pulse Resp BP Pulse Ox 97.8 F 62 22 H 132/86 H 98 10/13/17 11:52 10/13/17 11:52 10/13/17 11:52 10/13/17 11:52 10/13/17 11:52 Course - Vital Signs Vital signs: Temp Pulse Resp BP Pulse Ox 97.8 F 62 22 H 132/86 H 98 10/13/17 11:52 10/13/17 11:52 10/13/17 11:52 10/13/17 11:52 10/13/17 11:52
[2017-10-13 12:29] LABS: ABSOLUTE EOSINOPHILS # (AUTO) 0.1 10^3/uL (0.0-0.6); ABSOLUTE LYMPHOCYTES (AUTO) 1.9 10^3/uL (0.5-4.7); ABSOLUTE MONOCYTES (AUTO) 0.4 10^3/uL (0.1-1.4); ABSOLUTE NEUT (AUTO) 4.4 10^3/uL (1.7-8.2); BASOPHILS % (AUTO) 0.3 % (0-2); EOSINOPHILS % (AUTO) 0.8 % (0-6); HEMATOCRIT 43.3 % (37.9-51.0); HEMOGLOBIN 14.5 g/dL (13.5-17.0); LYMPHOCYTES % (AUTO) 27.6 % (13-45); MEAN CORPUSCULAR HEMOGLOBIN 30.3 pg (27.0-33.4); MEAN CORPUSCULAR HGB CONC 33.4 g/dL (32.0-36.0); MEAN CORPUSCULAR VOLUME 91 fl (80-97); MONOCYTES % (AUTO) 5.9 % (3-13); PLATELET COUNT 224 10^3/uL (150-450); RED BLOOD COUNT 4.78 10^6/uL (4.35-5.55); RED CELL DISTRIBUTION WIDTH 14.1 % (11.5-14.0); SEGMENTED NEUTROPHILS % (AUTO) 65.4 % (42-78); TOTAL CELLS COUNTED % (AUTO) 100 %; WHITE BLOOD COUNT 6.7 10^3/uL (4.0-10.5)
[2017-10-13] MEDS ORDERED: NORMAL SALINE 1000 ML 1,000 ML IV ONE (12:30)
[2017-10-13] MEDS ORDERED: KETOROLAC TROMETHAMINE INJ/PF 30 MG/1 ML SDV IV ONE (12:31)
[2017-10-13] MEDS ORDERED: ONDANSETRON HCL INJ/PF 4 MG/2 ML SDV IV ONE (12:31)
--- NOTE | 2017-10-13 12:42 | ER Document Report ---
ED General - General Chief Complaint: Flank Pain Stated Complaint: RIGHT FLANK PAIN Time Seen by Provider: 10/13/17 12:02 Notes: 37-year-old male who presents with a week's history of right flank pain. Patient was seen here a week ago and had a CT which showed what looked to be a passed stone with hydronephrosis. Patient was treated and discharged home. Patient was feeling better by Monday but then began having pain yesterday. The patient states he had some nausea but no vomiting. Complains of severe 10 out of 10 right flank pain. Feels just like prior stones. The patient denies fever chills occasional hematuria denies dysuria. Denies chest pain or shortness of breath denies night sweats cough hemoptysis or gland swelling. Nothing makes discomfort better or worse TRAVEL OUTSIDE OF THE [place] IN LAST 30 DAYS: No - Related Data Allergies/Adverse Reactions: venom-honey bee [bee venom (honey bee)] Allergy (Verified 10/18/16 12:47) Past Medical History - Social History Smoking Status: Never Smoker Chew tobacco use (# tins/day): No Frequency of alcohol use: Occasional Drug Abuse: Marijuana Family History: Reviewed & Not Pertinent, Other - Biological father from [place] and grandfather has had [place] as well Patient has suicidal ideation: No Patient has homicidal ideation: No Pulmonary Medical History: Reports: Hx Asthma, Hx Bronchitis Renal/ Medical History: Denies: Hx Peritoneal Dialysis Past Surgical History: Reports: Hx Appendectomy - Immunizations Immunizations up to date: Yes Hx Diphtheria, Pertussis, Tetanus Vaccination: Yes Review of Systems - Review of Systems Gastrointestinal: Nausea. denies: Abdominal pain, Vomiting Genitourinary: Flank pain, Hematuria Musculoskeletal: Back pain -: Yes All other systems reviewed and negative Physical Exam - Vital signs Vitals: Temp Pulse Resp BP Pulse Ox 97.8 F 62 22 H 132/86 H 98 10/13/17 11:52 10/13/17 11:52 10/13/17 11:52 10/13/17 11:52 10/13/17 11:52 - Notes Notes: GENERAL_APPEARANCE: well_nourished, alert, cooperative, no_acute_distress, no_ obvious_discomfort. VITALS: reviewed, see vital signs table. HEAD: no_swelling\tenderness on the head. EYES: PERRL, EOMI, conjunctiva_clear. NOSE: no_nasal_discharge. MOUTH: (-)decreased moisture. THROAT: no_tonsilar_inflammation, no_airway_obstruction. no_lymphadenopathy NECK: supple, no_neck_tenderness, (-)thyromegaly. BACK: Right CVA_back_tenderness. CHEST_WALL: no_chest_tenderness. LUNGS: no_wheezing, no_rales, no_rhonchi, (-)accessory muscle use, good air exchange bilateral. HEART: normal_rate, normal_rhythm, normal_S1, normal_S2, (-)S3, (-)S4, no_ murmur, no_rub. ABDOMEN: normal_BS, soft, right upper quadrant_abd_tenderness, (-)guarding, (-) rebound, no_organomegaly, no_abd_masses. EXTREMITIES: good pulses in all_extremities, no_swelling\tenderness in the extremities, no_edema. SKIN: warm, dry, good_color, no_rash. MENTAL_STATUS: speech_clear, oriented_X_3, normal_affect, responds_ appropriately to questions. Course - Re-evaluation Re-evalutation: 10/13/17 12:42 37-year-old male presents for reevaluation of a kidney stone. He also has right upper quadrant tenderness and still has a gallbladder with an ultrasound the gallbladder ultrasound also see if there is still hydronephrosis noted on the right kidney. Check general urinalysis lab work give him pain and nausea medicine. A liter of IV fluids. 10/13/17 15:00 Ultrasound shows still show some hydronephrosis. Abdomen Ultrasound 10/13/17 12:07 IMPRESSION: There is mild hydronephrosis of the right kidney which was present on the CT scan. No other significant intra-abdominal abnormalities were identified. Other findings as noted above. KUB X-Ray 10/13/17 12:32 IMPRESSION: Possible tiny right ureterovesicular junction ureterolith. 10/13/17 15:01 May still be a stone present. He is out of the hydros chronic on the right. There is no signs of any blood or infection in the urine. So this is not a septic stone will provide him some additional pain medicine Flomax and encouraged him to follow-up with urology. His pain is controlled here. - Vital Signs Vital signs: Temp Pulse Resp BP Pulse Ox 97.8 F 58 L 22 H 134/92 H 99 10/13/17 11:52 10/13/17 12:17 10/13/17 11:52 10/13/17 12:17 10/13/17 12:17 - Laboratory Result Diagrams: 10/13/17 12:12 10/13/17 12:12 Laboratory results interpreted by me: 10/13/17 10/13/17 10/13/17 12:12 12:12 12:41 RDW 14.1 H Chloride 108 H Urine Urobilinogen 4.0 H Discharge - Discharge Clinical Impression: Kidney stone on right side Condition: Good Disposition: HOME, SELF-CARE Instructions: Kidney Stone ([facility]) Additional Instructions: Please follow-up with urology --if worse or if you develop a fever return to the ER. Prescriptions: Hydrocodone/Acetaminophen [[place] 5-325 mg Tablet] 1 tab PO Q6H PRN #12 tablet PRN Reason: Pain Ketorolac Tromethamine 10 mg PO QID PRN #12 tablet PRN Reason: pain Tamsulosin HCl [Flomax 0.4 mg Cap.sr] 0.4 mg PO DAILY #7 cap.sr.24h Referrals: OTF KING MD [NO LOCAL MD] - Follow up as needed
[2017-10-13 12:46] LABS: ALANINE AMINOTRANSFERASE 31 U/L (21-72); ALBUMIN 4.5 g/dL (3.5-5.0); ALKALINE PHOSPHATASE 52 U/L (38-126); ANION GAP 13 (5-19); ASPARTATE AMINO TRANSFERASE 21 U/L (17-59); BILIRUBIN,DIRECT 0.4 mg/dL (0.0-0.4); BILIRUBIN,TOTAL 0.4 mg/dL (0.2-1.3); BLOOD UREA NITROGEN 8 mg/dL (7-20); CALCIUM 10.1 mg/dL (8.4-10.2); CARBON DIOXIDE 23 mmol/L (22-30); CHLORIDE 108 mmol/L (98-107); GLUCOSE 101 mg/dL (75-110); LIPASE 133.3 U/L (23-300); POTASSIUM 4.5 mmol/L (3.6-5.0); SODIUM 143.8 mmol/L (137-145); TOTAL PROTEIN 7.8 g/dL (6.3-8.2)
--- NOTE | 2017-10-13 13:07 | RADIOLOGY REPORT (SQ) ---
EXAM DESCRIPTION: KUB/ABDOMEN (SINGLE VIEW) COMPLETED DATE/TIME: 10/13/2017 12:51 pm REASON FOR STUDY: Right sided kidney stone ? COMPARISON: None. NUMBER OF VIEWS: One view. TECHNIQUE: Supine radiographic image of the abdomen acquired. LIMITATIONS: None. FINDINGS: BOWEL GAS PATTERN: Normal bowel gas pattern. No dilated loops. CALCIFICATIONS: A punctate hyperdensity projects in the expected location of the right ureterovesicul ar junction, and may represent a distal ureteral stone. SOFT TISSUES: No gross mass or suggestion of organomegaly. HARDWARE: None in the abdomen. BONES: No acute fracture. No worrisome bone lesions. OTHER: No other significant finding. IMPRESSION: Possible tiny right ureterovesicular junction ureterolith. TECHNICAL DOCUMENTATION: JOB ID: [id number] [employer]- All Rights Reserved Reading location - IP/workstation name: [email or web address]
[2017-10-13 13:12] LABS: APPEARANCE,URINE CLEAR; BILIRUBIN,URINE NEGATIVE (NEGATIVE); COLOR,URINE AMBER; GLUCOSE, URINE NEGATIVE (NEGATIVE); KETONES,URINE NEGATIVE (NEGATIVE); LEUKOCYTE ESTERASE,URINE NEGATIVE (NEGATIVE); NITRITE,URINE NEGATIVE (NEGATIVE); PROTEIN,URINE NEGATIVE (NEGATIVE)
--- NOTE | 2017-10-13 14:28 | RADIOLOGY REPORT (SQ) ---
EXAM DESCRIPTION: U/S ABDOMEN LIMITED W/O DOP COMPLETED DATE/TIME: 10/13/2017 2:07 pm REASON FOR STUDY: RUQ pain COMPARISON: Abdominal CT scan dated 10/06/2017 TECHNIQUE: Dynamic and static grayscale images acquired of the abdomen and recorded on PACS. Shanio miranda selected color Doppler and spectral images recorded. LIMITATIONS: None. FINDINGS: PANCREAS: No masses. Visualized pancreatic duct normal caliber. Pancreatic tail was not visualized. LIVER: No masses. Echotexture normal. LIVER VASCULATURE: Normal directional flow of the main portal vein. GALLBLADDER: No stones. Normal wall thickness. No pericholecystic fluid. ULTRASOUND-DETECTED RAMOS'S SIGN: Negative. INTRAHEPATIC DUCTS AND COMMON DUCT: CBD and intrahepatic ducts normal caliber. No filling defects. INFERIOR VENA CAVA: Normal flow. AORTA: No aneurysm. RIGHT KIDNEY: Normal size. Normal echogenicity. No solid or suspicious masses. There is mild hydron ephrosis of the right kidney which was present on the CT scan. No calcifications. PERITONEAL AND RIGHT PLEURAL SPACE: No ascites or effusions. OTHER: No other significant findings. IMPRESSION: There is mild hydronephrosis of the right kidney which was present on the CT scan. No o ther significant intra-abdominal abnormalities were identified. Other findings as noted above. TECHNICAL DOCUMENTATION: JOB ID: [id number] [employer]- All Rights Reserved Reading location - IP/workstation name: [email or web address]
[2017-10-13 15:24] VITALS: BP 137/87
== END 2017-10-13 15:24 | disposition home or self-care (01) ==
LOC: ER 11:37
DX: N20.0 Calculus of kidney (principal); R11.0 Nausea; R10.9 Unspecified abdominal pain
CPT/HCPCS: 99284; 96361; 96374; 96375; 36415; 83690; 85025; 80053; 81001; 74018; 76705; S0119; J1885; J2405; J7030

== ENCOUNTER 2017-10-17 18:58 | Emergency (ER) | payer SELFPAY ==
[2017-10-17] MEDS ORDERED: ONDANSETRON HCL INJ/PF 4 MG/2 ML SDV IV ONE (19:50)
[2017-10-17] MEDS ORDERED: NORMAL SALINE 1000 ML 1,000 ML IV PRN (19:50)
--- NOTE | 2017-10-17 19:54 | ER Document Report ---
ED General - General Chief Complaint: Possible Kidney Stone Stated Complaint: FLANK PAIN Time Seen by Provider: 10/17/17 19:40 TRAVEL OUTSIDE OF THE [place] IN LAST 30 DAYS: No - HPI Notes: Patient is a 37-year-old male who presents to the ED complaining of right flank pain that radiates into his right groin with pain upon urination that began this morning. Patient states that his pain has been relatively constant but does come in intermittent waves as well. Patient was evaluated 2 weeks ago and was diagnosed with a recently passed kidney stone as well as one in the bladder and hydronephrosis. Patient states that he did all right when he left the ER at that time, but came back several days later for return pain. Patient had an ultrasound performed which showed still a mild hydronephrosis and possible suspicion of left over ureterolith. Patient states that he does have an appointment set up with the urologist in 2 days. Patient states that he is otherwise eating and drinking without difficulties. He is having normal bowel movements. Denies any drug allergies. Patient did receive Toradol and fentanyl by EMS. Denies any headache, fever, neck pain, URI, sore throat, chest pain, palpitations, syncope, cough, shortness of breath, wheeze, dyspnea, nausea/vomiting/diarrhea, numbness/tingling, saddle anesthesia, muscle paralysis /weakness, or rash. - Related Data Allergies/Adverse Reactions: venom-honey bee [bee venom (honey bee)] Allergy (Verified 10/17/17 19:46) Past Medical History - Social History Smoking Status: Current Every Day Smoker Frequency of alcohol use: Rare Drug Abuse: Marijuana Family History: Reviewed & Not Pertinent, Other - Biological father from [place] and grandfather has had [place] as well Patient has suicidal ideation: No Patient has homicidal ideation: No Pulmonary Medical History: Reports: Hx Asthma, Hx Bronchitis Renal/ Medical History: Reports: Hx Kidney Stones. Denies: Hx Peritoneal Dialysis Past Surgical History: Reports: Hx Appendectomy - Immunizations Immunizations up to date: Yes Hx Diphtheria, Pertussis, Tetanus Vaccination: Yes Review of Systems - Review of Systems -: Yes All other systems reviewed and negative Physical Exam - Vital signs Vitals: Temp Pulse Resp BP Pulse Ox 98.3 F 67 20 156/93 H 100 10/17/17 19:16 10/17/17 19:16 10/17/17 19:16 10/17/17 19:16 10/17/17 19:16 - Notes Notes: PHYSICAL EXAMINATION: GENERAL: Well-appearing, well-nourished and in no acute distress. LUNGS: Breath sounds clear to auscultation bilaterally and equal. No wheezes rales or rhonchi. HEART: Regular rate and rhythm without murmurs, rubs, gallops. ABDOMEN: Soft, nontender, nondistended abdomen. No guarding, no rebound. No masses appreciated. Normal bowel sounds present. + mild rt CVA tenderness. Musculoskeletal: FROM to passive/active. Strength 5+/5. Back: FROM. Strength 5+/5. no vertebral point tenderness, ecchymosis, or deformity. SLR neg b/l. No foot drop. Extremities: No cyanosis, clubbing, or edema b/l. Peripheral pulses 2+. Capillary refill less than 3 seconds. NEUROLOGICAL: Normal speech, normal gait. Normal sensory, motor exams PSYCH: Normal mood, normal affect. SKIN: Warm, Dry, normal turgor, no rashes or lesions noted. Course - Re-evaluation Re-evalutation: 10/17/17 19:[address] Aly. We will obtain labs and urine to further evaluate US vs CT. 10/17/17 20:29 CBC and UA acceptable and generally unremarkable. CMP showed mildly inc Cr with GFR 56. Pt's urine does have concentration with sp grav of 1.023. Fluids and zofran given. We will obtain an US to further investigate. 10/17/17 22:51 Patient is an afebrile, well-hydrated, 37-year-old male who presents to the ED with flank plain and urethral pain, suspect possible urethral stone. Patient does have mild hydronephrosis that has been unchanged since last visit. Vitals are acceptable. PE is otherwise unremarkable. Patient is tolerating p.o. Ultrasound was otherwise unremarkable. No other labs or imaging warranted at this time based on H&P. Low suspicion/risk for acute appendicitis, bowel obstruction, acute cholecystitis, perforated diverticulitis, incarcerated hernia , pancreatitis, perforated ulcer, peritonitis, urosepsis, or other systemic emergent condition at this time. Patient is aware that his condition can change from initial presentation and he needs to monitor symptoms closely and seek medical attention if any acute changes. Patient will receive another prescription for Flomax as well as Zofran and a Tye dispense pack. Conservative measures otherwise for symptoms. Recheck with PCM in 2-3 days. Keep consult with urology in 2 days. Return to the ED with any worsening/ concerning symptoms otherwise as reviewed in discharge. Patient is in agreement. - Vital Signs Vital signs: Temp Pulse Resp BP Pulse Ox 98.3 F 67 20 156/93 H 100 10/17/17 19:16 10/17/17 19:16 10/17/17 19:16 10/17/17 19:16 10/17/17 19:16 - Laboratory Result Diagrams: 10/17/17 18:33 10/17/17 18:33 Laboratory results interpreted by me: 10/17/17 10/17/17 10/17/17 18:33 18:33 19:26 WBC 12.2 H RDW 14.5 H Absolute Neutrophils 9.0 H Creatinine 1.42 H Est GFR (Non-Af Amer) 56 L ALT 19 L Urine Blood SMALL H Discharge - Discharge Clinical Impression: Flank pain Condition: Stable Disposition: HOME, SELF-CARE Additional Instructions: Push fluids (i.e. water, cranberry juice) Proper hygenic technique Keep the skin clean Tylenol/ibuprofen as needed May use over the counter AZO for burning with urination Take medications as directed F/u with your PCM in 3-5 days for a recheck Keep consult with your Urologist in 2 days as scheduled Return to the ED with any worsening symptoms and/or development of fever, headache, chest pain, palpitations, syncope, shortness of breath, trouble breathing, abdominal pain, n/v/d, blood in stool/urine, loss of control of bowel /bladder, urinary retention, or other worsening symptoms that are concerning to you. Prescriptions: Ondansetron [Zofran Odt 4 mg Tablet] 1 - 2 tab PO Q4H PRN #15 tab.rapdis PRN Reason: For Nausea/Vomiting Tamsulosin HCl [Flomax] 0.4 mg PO DAILY #10 cap.er.24h Forms: Elevated Blood Pressure Referrals: UROLOGY [Provider Group] - 10/19/17
[2017-10-17 20:09] LABS: APPEARANCE,URINE CLEAR; BILIRUBIN,URINE NEGATIVE (NEGATIVE); COLOR,URINE YELLOW; GLUCOSE, URINE NEGATIVE (NEGATIVE); KETONES,URINE NEGATIVE (NEGATIVE); LEUKOCYTE ESTERASE,URINE NEGATIVE (NEGATIVE); NITRITE,URINE NEGATIVE (NEGATIVE); PROTEIN,URINE NEGATIVE (NEGATIVE); URINE SPECIFIC GRAVITY 1.023; UROBILINOGEN,URINE NEGATIVE mg/dL (<2.0)
[2017-10-17 20:12] LABS: ABSOLUTE EOSINOPHILS # (AUTO) 0.1 10^3/uL (0.0-0.6); ABSOLUTE LYMPHOCYTES (AUTO) 2.2 10^3/uL (0.5-4.7); ABSOLUTE MONOCYTES (AUTO) 0.9 10^3/uL (0.1-1.4); BASOPHILS % (AUTO) 0.2 % (0-2); EOSINOPHILS % (AUTO) 0.7 % (0-6); LYMPHOCYTES % (AUTO) 17.8 % (13-45); MEAN CORPUSCULAR HEMOGLOBIN 30.1 pg (27.0-33.4); MEAN CORPUSCULAR HGB CONC 33.2 g/dL (32.0-36.0); MEAN CORPUSCULAR VOLUME 90 fl (80-97); MONOCYTES % (AUTO) 7.7 % (3-13); PLATELET COUNT 214 10^3/uL (150-450); RED BLOOD COUNT 4.64 10^6/uL (4.35-5.55); RED CELL DISTRIBUTION WIDTH 14.5 % (11.5-14.0); SEGMENTED NEUTROPHILS % (AUTO) 73.6 % (42-78); TOTAL CELLS COUNTED % (AUTO) 100 %; WHITE BLOOD COUNT 12.2 10^3/uL (4.0-10.5)
[2017-10-17 20:19] LABS: ALANINE AMINOTRANSFERASE 19 U/L (21-72); ALBUMIN 4.4 g/dL (3.5-5.0); ALKALINE PHOSPHATASE 58 U/L (38-126); ANION GAP 11 (5-19); ASPARTATE AMINO TRANSFERASE 23 U/L (17-59); BILIRUBIN,DIRECT 0.4 mg/dL (0.0-0.4); BILIRUBIN,TOTAL 0.4 mg/dL (0.2-1.3); BLOOD UREA NITROGEN 12 mg/dL (7-20); CARBON DIOXIDE 24 mmol/L (22-30); CHLORIDE 106 mmol/L (98-107); GLUCOSE 91 mg/dL (75-110); SODIUM 141.2 mmol/L (137-145); TOTAL PROTEIN 7.5 g/dL (6.3-8.2)
--- NOTE | 2017-10-17 22:22 | RADIOLOGY REPORT (SQ) ---
EXAM DESCRIPTION: U/S ABDOMEN LIMITED W/O DOP COMPLETED DATE/TIME: 10/17/2017 10:12 pm REASON FOR STUDY: rt flank pain, eval kidney, recent stones/hydro COMPARISON: 10/13/2017. TECHNIQUE: Dynamic and static grayscale images acquired of the right upper quadrant and recorded on PACS. Additional selected color Doppler and spectral images recorded. LIMITATIONS: Limited due to patient discomfort and overlying bowel gas. FINDINGS: PANCREAS: Visualized pancreas and duct normal. Parts of pancreas poorly seen secondary to acoustical interference from fat or from air in the bowel. LIVER: No masses. Echotexture normal. LIVER VASCULATURE: Normal directional flow of the main portal vein and hepatic veins. GALLBLADDER: No stones. Normal wall thickness. No pericholecystic fluid. ULTRASOUND-DETECTED RAMOS'S SIGN: Negative. INTRAHEPATIC DUCTS AND COMMON DUCT: CBD and intrahepatic ducts normal caliber. No filling defects. INFERIOR VENA CAVA: Normal flow. AORTA: Poorly visualized. RIGHT KIDNEY: Normal size. Normal echogenicity. No solid or suspicious masses. Mild hydronephrosis. No calcifications. PERITONEAL CAVITY AND RIGHT PLEURAL SPACE: No ascites or effusions. OTHER: No other significant finding. IMPRESSION: LIMITED STUDY. MILD HYDRONEPHROSIS OF THE RIGHT KIDNEY, UNCHANGED FROM THE PRIOR STUDY. TECHNICAL DOCUMENTATION: JOB ID: [id number] [employer]- All Rights Reserved Reading location - IP/workstation name: [email or web address]
[2017-10-17] MEDS ORDERED: ONDANSETRON ODT 4 MG TAB (6 TAB/ER DISP) PO PRN (22:55)
[2017-10-17] MEDS ORDERED: HYDROCODONE/ACETAMINOPHEN 5-325 MG (6 TAB/ER DISP) PO PRN (22:55)
[2017-10-17] MEDS ORDERED: MORPHINE SULFATE 10 MG/ML INJ IV ONE (22:58)
[2017-10-17 23:43] VITALS: BP 154/76
== END 2017-10-17 23:43 | disposition home or self-care (01) ==
LOC: ER 18:58
DX: R10.9 Unspecified abdominal pain (principal); R30.0 Dysuria; N13.30 Unspecified hydronephrosis; F17.200 Nicotine dependence, unspecified, uncomplicated; Z87.442 Personal history of urinary calculi
CPT/HCPCS: 99284; 96361; 96374; 96375; 36415; 85025; 80053; 81001; 76705; J2270; J2405; J7030